=== PATIENT | male | born 1980 ===

== ENCOUNTER 2016-07-04 13:35 | Emergency (ER) | payer BC ==
[~2016-07-04] VITALS: Wt 95.0 kg
--- NOTE | 2016-07-04 14:12 | ERD ---
ER Documentation Chief Complaint Date/Time DATE: 07/04/16 TIME: 14:07 Chief Complaint LEFT HAND PAIN AND SWELLING FOR THE PAST DAY, NO DEFORMITY HPI This is a 36-year-old male who presents to the emergency department today complaining of left hand pain and swelling for the past 2 days after using a punching bag. He has not taken any medication for the pain. States that 2 days ago he iced it but nothing recently. States he had a previous injury 30 years ago. Denies any fevers or chills ROS All systems reviewed and are negative except as per history of present illness. Medications Home Meds Active Scripts Acetaminophen* (Tylophen*) 500 Mg Capsule, 1 CAP PO Q6H Y for PAIN AND OR ELEVATED TEMP, #30 CAP Prov:ELDA MELENDEZ PA-C 07/04/16 Tramadol HCl (Tramadol HCl) 50 Mg Tablet, 50 MG PO Q4 Y for PAIN, #20 TAB Prov:ELDA MELENDEZ PA-C 07/04/16 Naproxen* (Naprosyn*) 500 Mg Tablet, 500 MG PO BID Y for PAIN AND/OR INFLAMMATION, #30 TAB Prov:ELDA MELENDEZ PA-C 07/04/16 PMhx/Soc Medical and Surgical Hx: pt denies Medical Hx, pt denies Surgical Hx Hx Alcohol Use: Yes Hx Substance Use: No Hx Tobacco Use: No Smoking Status: Never smoker Physical Exam Vitals Vital Signs Date Time Temp Pulse Resp B/P Pulse Ox O2 Delivery O2 Flow Rate FiO2 07/04/16 13:41 98.8 68 21 120/78 98 Physical Exam Const: No acute distress Head: Atraumatic Eyes: Normal Conjunctiva ENT: Normal External Ears, Nose and Mouth. Neck: Full range of motion..~ No meningismus. Resp: Clear to auscultation bilaterally Cardio: Regular rate and rhythm, no murmurs Skin: No petechiae or rashes MSK left hand with moderate effusion over posterior aspect of hand. Effusion over thenar eminence. Tenderness palpation MCP joint and scaphoid. Decreased range of motion at wrist. Pulses 2+. Distal neurovascularly intact. Neur: Awake and alert Psych: Normal Mood and Affect Results 24 hrs DIAGNOSTIC IMAGING REPORT Patient: KALPESH PETERSON : 1980 Age: 36 Sex: M MR #: [id number] DOS: 07/04/16 0000 Ordering MD: ELDA MELENDEZ PA-C Location: [facility] Room/Bed: PROCEDURE: XR left hand. CLINICAL INDICATION: Hand pain TECHNIQUE: Three views of the hand available for review. COMPARISON: No prior studies are available for comparison. FINDINGS: There is an acute transverse fracture of the first metacarpal base with volar angulation. There is otherwise normal mineralization, architecture and alignment. No osseous lesion is identified. The joints are unremarkable. There is soft tissue swelling involving the dorsum of the hand. IMPRESSION: Acute transverse fracture of the first metacarpal base with volar angulation. RPTAT: HGDB .Ralph Kulkarni MD, MD Date Time Electronically viewed and signed by .Ralph Kulkarni MD, on 07/04/2016 14:38 .B/ CC: ELDA MELENDEZ PA-C DIAGNOSTIC IMAGING REPORT Patient: KALPESH PETERSON : 1980 Age: 36 Sex: M MR #: [id number] DOS: 07/04/16 0000 Ordering MD: ELDA MELENDEZ PA-C Location: [facility] Room/Bed: PROCEDURE: XR left wrist. CLINICAL INDICATION: Hand pain TECHNIQUE: 4 views are available for review. COMPARISON: No prior studies are available for comparison. FINDINGS: There is an acute transverse fracture of the first metacarpal base with volar angulation. The osseous structures are otherwise normal in mineralization, architecture and alignment. No osseous lesions are identified. The joints are unremarkable. There is mild soft tissue swelling. IMPRESSION: Acute transverse fracture of the first metacarpal base with volar angulation RPTAT: HGDB .Ralph Kulkarni MD, MD Date Time Electronically viewed and signed by .Ralph Kulkarni MD, MD on 07/04/2016 14:37 .B/ CC: ELDA MELENDEZ PA-C Procedures/[facility] This a 36-year-old male who presents the emergency department today complaining of left hand pain and swelling for the past 2 days after sustaining a trauma while using a punching bag. Patient had a significant amount of swelling in his hand and therefore I did obtain images. Per the radiology report images of the left hand show an acute transverse fracture of the first metacarpal base with volar angulation. There is soft tissue swelling involving the dorsum of the hand Images of the left wrist show an acute transverse fracture of the first metacarpal base with volar angulation. There is mild soft tissue swelling. Joints are otherwise unremarkable. Patient symptoms at this time is consistent with first metacarpal fracture. Patient did have some scaphoid tenderness and therefore I did place him in a splint. I explained to him the importance of following up with a primary care physician for further evaluation and management and referral to orthopedics. Patient understood. Patient was distally neurovascularly intact pre-and post splint application. Patient declined pain medication here in the emergency department. He will be given a prescription for tramadol, Naprosyn and Tylenol for home At this time the patient is stable for discharge and outpatient management. Patient should follow up with their PCP in the next 1-2 days for referral to orthopedic. They may return to the emergency department sooner for any persistent or worsening of symptoms. Patient understood and agreed with the plan. Departure Diagnosis: Primary Impression: Thumb fracture Encounter type: initial encounter Fracture type: closed Phalanx: proximal Fracture alignment: nondisplaced Laterality: left Qualified Code: S62.515A - Closed nondisplaced fracture of proximal phalanx of left thumb, initial encounter Condition: Fair ELDA MELENDEZ PA-C Jul 04, 2016 14:11
--- NOTE | 2016-07-04 14:37 | RADRPT ---
PROCEDURE: XR left wrist. CLINICAL INDICATION: Hand pain TECHNIQUE: 4 views are available for review. COMPARISON: No prior studies are available for comparison. FINDINGS: There is an acute transverse fracture of the first metacarpal base with volar angulation. The osseous structures are otherwise normal in mineralization, architecture and alignment. No osseo us lesions are identified. The joints are unremarkable. There is mild soft tissue swelling. IMPRESSION: Acute transverse fracture of the first metacarpal base with volar angulation RPTAT: HGDB .Ralph Kulkarni MD, Date Time Electronically viewed and signed by .Ralph Kulkarni MD, on 07/04/2016 14:37 .B/
--- NOTE | 2016-07-04 14:39 | RADRPT ---
PROCEDURE: XR left hand. CLINICAL INDICATION: Hand pain TECHNIQUE: Three views of the hand available for review. COMPARISON: No prior studies are available for comparison. FINDINGS: There is an acute transverse fracture of the first metacarpal base with volar angulation. There is otherwise normal mineralization, architecture and alignment. No osseous lesion is identifi ed. The joints are unremarkable. There is soft tissue swelling involving the dorsum of the hand. IMPRESSION: Acute transverse fracture of the first metacarpal base with volar angulation. RPTAT: HGDB .Ralph Kulkarni MD, MD Date Time Electronically viewed and signed by .Ralph Kulkarni MD, on 07/04/2016 14:38 .B/
[2016-07-04] MEDS ORDERED: NAPR-260 PO (15:06)
[2016-07-04] MEDS ORDERED: ACET500C5 PO (15:07)
[2016-07-04] MEDS ORDERED: TRAM50TA2 PO (15:07)
== END 2016-07-04 15:58 | disposition home or self-care (01) ==
LOC: FTE 13:35
DX: S62.515A Nondisplaced fracture of proximal phalanx of left thumb, initial encounter for closed fracture (principal); W22.8XXA Striking against or struck by other objects, initial encounter; Y92.9 Unspecified place or not applicable